=== PATIENT | female | born 1950 | race Caucasian/White ===

== ENCOUNTER → 2018-02-14 | Outpatient (CLI) | payer OTHER ==
[~2018-02-14] MED LIST: ASPIRIN81 M2 PO; ATORVASTATIN CA40 MG PO; EFFIENT10 MG PO; EXCEDRIN CAPLE1 EACH PO; FAMOTIDINE 20 M20 MG; FAMOTIDINE20 MG PO; HYDROCODONE-AP1 EAC6 PO; HYLANDS LEG CRAMPS SUBLING; LIORESAL 10 MG10 MG PO; LIPITOR40 MG PO; LOPRESSOR 50 MG50 M1 PO; LOPRESSOR25; LOPRESSOR25 PO; METOPROLOL PO; METOPROLOL SUCC25 M1 PO; MOBIC7.5 MG PO; NEXIUM40 MG PO; NORCO 5-325 TA1 EACH PO; NORVASC2.5 MG PO; PERCOCET 5-3251 EACH PO; PLAVIX 75 MG TA75 M1 PO; ROXICODONE5 M1; TRAMADOL 50 MG50 MG PO; TRICOR145 MG PO; VICODIN ES 7.51 EACH; ZETIA10 MG PO
== END ==
LOC: M.RAD 15:03
DX: M81.8 Other osteoporosis without current pathological fracture (principal); M85.88 Other specified disorders of bone density and structure, other site